=== PATIENT | male | born 1955 | race Hispanic/Latino ===

== ENCOUNTER 2021-05-10 10:36 | Emergency (ER) | payer OTHER ==
[2021-05-10 11:14] LABS: Urine Blood Negative (Negative); Urine Glucose 3+ (Negative); Urine Protein Negative (Negative); Urine pH 6.5 (5.0-7.0)
[2021-05-10] MEDS ORDERED: NA CHLORIDE 0.9% 1,000 ML ONE (11:21)
[2021-05-10] MEDS ORDERED: INSULIN -REGULAR HUMAN 50 UNIT/0.5 ML ML ONE (11:21)
[2021-05-10 11:32] LABS: Absolute Lymphocytes (CBC) 0.5 K/uL (0.7-4.9); Hematocrit 41.8 % (39.6-49.0); Lymphocytes % 6.1 % (15.3-44.8); MPV 7.2 fL (7.6-11.3); RBC Red Blood Cell Count 4.66 M/uL (4.33-5.43)
[2021-05-10 11:43] LABS: ALT/SGPT 56 U/L (12-78); AST/SGOT 19 U/L (15-37); Albumin 2.8 g/dL (3.4-5.0); Alkaline Phosphatase 130 U/L (45-117); BUN Blood Urea Nitrogen 24 mg/dL (7-18); Bicarbonate 25 mmol/L (21-32); Bilirubin Direct < 0.1 mg/dL (0-0.2); Bilirubin Total 0.3 mg/dL (0.2-1.0); Lipase 269 U/L (73-393); Potassium 4.7 mmol/L (3.5-5.1); Protein, Total 6.1 g/dL (6.4-8.2); Sodium Level 133 mmol/L (136-145)
[2021-05-10 11:44] LABS: Glucose Level 459 mg/dL (74-106)
--- NOTE | 2021-05-10 14:29 | EDPHYS ---
Physician Documentation [facility] Name: Kai Khalil Age: 66 yrs Sex: Male : 1955 Arrival Date: 05/10/2021 Time: 10:43 Bed 15 Private MD: ED Physician Mj Devlin HPI: 05/10 11:01 This 66 yrs old Male presents to ER via Ambulatory with complaints of High jmm Blood Sugar. 11:01 Onset: The symptoms/episode began/occurred today. Associated signs and symptoms: jmm Pertinent negatives: None. Current symptoms: In the emergency department the patient's symptoms are unchanged from the initial presentation. The patient has not experienced similar symptoms in the past. Patient states he takes metformin daily as directed by his PCP. - Immunization history:: Adult Immunizations unknown. - Social history:: Smoking status: Patient denies any tobacco usage or history of. ROS: 11:01 Constitutional: Negative for fever, chills, and weight loss, Cardiovascular: Negative jmm for chest pain, palpitations, and edema, Respiratory: Negative for shortness of breath, cough, wheezing, and pleuritic chest pain, Abdomen/GI: Negative for abdominal pain, nausea, vomiting, diarrhea, and constipation, Skin: Negative for injury, rash, and discoloration, Neuro: Negative for headache, weakness, numbness, tingling, and seizure. 11:01 All other systems are negative. Exam: 11:01 Constitutional: This is a well developed, well nourished patient who is awake, alert, jmm and in no acute distress. Head/Face: atraumatic. Eyes: EOMI, no conjunctival erythema appreciated ENT: Moist Mucus Membranes Neck: Trachea midline, Supple Chest/axilla: Normal chest wall appearance and motion. Cardiovascular: Regular rate and rhythm. No edema appreciated Respiratory: Normal respirations, no respiratory distress appreciated Abdomen/GI: Non distended, soft Back: Normal ROM Skin: General appearance color normal MS/ Extremity: Moves all extremities, no obvious deformities appreciated, no edema noted to the lower extremities Neuro: Awake and alert, normal gait Psych: Behavior is normal, Mood is normal, Patient is cooperative and pleasant Vital Signs: 10:49 BP 151 / 89; Pulse 88; Resp 18; Temp 98.1(O); Pulse Ox 100% on R/A; Weight 93.44 kg; juarez Height 5 ft. 0 in. (152.40 cm); 10:58 BP 173 / 90; Pulse 89; Resp 16; Temp 98.6; Pulse Ox 99% ; Pain 0/10; cb5 13:15 BP 139 / 88; Pulse 77; Resp 16; Pulse Ox 98% ; Pain 0/10; cb5 14:40 BP 138 / 78; Pulse 76; Resp 16; Temp 98.6; Pulse Ox 99% ; Pain 0/10; cb5 10:49 Body Mass Index 40.23 (93.44 kg, 152.40 cm) juarez MDM: 11:02 [facility] medically screened. [facility] 14:28 Data reviewed: vital signs, nurses notes. Counseling: I had a detailed discussion with jazz the patient and/or guardian regarding: the historical points, exam findings, and any diagnostic results supporting the discharge/admit diagnosis, lab results, the need for outpatient follow up, to return to the emergency department if symptoms worsen or persist or if there are any questions or concerns that arise at home. 05/10 11:01 Order name: Glucose, Ancillary Testing [facility] 05/10 11:02 Order name: Basic Metabolic Panel; Complete Time: 12:29 [facility] 05/10 11:02 Order name: CBC with Diff; Complete Time: 12:29 [facility] 05/10 11:02 Order name: Hepatic Function; Complete Time: 12:29 [facility] 05/10 11:02 Order name: Lipase; Complete Time: 12:29 [facility] 05/10 11:14 Order name: Urine Dipstick-Ancillary; Complete Time: 11:25 [facility] 05/10 11:02 Order name: IV Saline Lock; Complete Time: 11:17 [facility] 05/10 11:02 Order name: Labs collected and sent; Complete Time: 11:17 [facility] 05/10 11:29 Order name: Glucose, Ancillary Testing [facility] 05/10 12:45 Order name: Glucose, Ancillary Testing; Complete Time: 12:53 [facility] 05/10 14:45 Order name: Glucose, Ancillary Testing; Complete Time: 14:47 [facility] Administered Medications: 11:21 Drug: NS 0.9% 1000 ml Route: IV; Rate: 1 bolus; Site: left antecubital; cb5 11:21 Drug: Insulin Regular Human 10 units {Co-Signature: ab2 (Osvaldo Zaidi).} Route: cb5 IVP; Site: left antecubital; 13:01 Drug: NS 0.9% 1000 ml Route: IV; Rate: 1 bolus; Site: left antecubital; cb5 Disposition: 18:03 Co-signature as Attending Physician, Mj Devlin MD. rn Disposition Summary: 05/10/21 14:28 Discharge [facility]dered [facility] Condition: Stable jm Diagnosis - Hyperglycemia, unspecified jm [facility]up[facility] - With: Private Physician - When: 2 - 3 days - Reason: Recheck today's complaints, Continuance of care, Re-evaluation by your physician Discharge Instructions: - Discharge Summary Sheet [facility] - Hyperglycemia [facility] Forms: - Medication Reconciliation Form [facility] - Thank You Letter [facility] - Antibiotic Education [facility] - Prescription Opioid Use [facility] Signatures: Dispatcher [employer] EDRavinder Urbina PA PA jmm Nieto, Roman, MD MD rn Pili Romano RN Yolie Frederick RN RN cb5 Osvaldo Zaidi ab2
--- NOTE | 2021-05-10 14:29 | ER ---
Nurse's Notes [facility] Name: Kai Khalil Age: 66 yrs Sex: Male : 1955 Arrival Date: 05/10/2021 Time: 10:43 Bed 15 Private MD: Diagnosis: Hyperglycemia, unspecified Presentation: 05/10 10:49 Chief complaint: Patient states: pt presented to ed with high blood sugar. B/S in juarez triage 476. Coronavirus screen: Vaccine status: Patient reports being unvaccinated. Ebola Screen: Patient denies travel to an Ebola-affected area in the 21 days before illness onset. Initial Sepsis Screen: Does the patient meet any 2 criteria? No. Patient's initial sepsis screen is negative. Does the patient have a suspected source of infection? No. Patient's initial sepsis screen is negative. Risk Assessment: Do you want to hurt yourself or someone else? Patient reports no desire to harm self or others. Onset of symptoms was 2021. 10:49 Method Of Arrival: Ambulatory juarez 10:49 Acuity: XIN 3 juarez Triage Assessment: 10:56 General: Appears in no apparent distress. comfortable, Behavior is calm, cooperative, cb5 appropriate for age. 10:56 Pain: Denies pain. cb5 - Immunization history:: Adult Immunizations unknown. - Social history:: Smoking status: Patient denies any tobacco usage or history of. Screenin:57 Abuse screen: Denies threats or abuse. Denies injuries from another. Nutritional cb5 screening: No deficits noted. Tuberculosis screening: No symptoms or risk factors identified. Assessment: 10:56 General: Appears in no apparent distress. comfortable, well developed, well nourished, cb5 Behavior is calm, cooperative, appropriate for age. Pain: Denies pain. Neuro: No deficits noted. Level of Consciousness is awake, alert, obeys commands, Oriented to person, place, time. Cardiovascular: No deficits noted. Respiratory: No deficits noted. GI: Patient currently denies. : Denies. EENT: No deficits noted. Derm: No deficits noted. Musculoskeletal: No deficits noted. 13:16 Reassessment: Patient and/or family updated on plan of care and expected duration. Pain cb5 level reassessed. 14:45 Reassessment: Reported to P.A. glucose reading. cb5 Vital Signs: 10:49 BP 151 / 89; Pulse 88; Resp 18; Temp 98.1(O); Pulse Ox 100% on R/A; Weight 93.44 kg; juarez Height 5 ft. 0 in. (152.40 cm); 10:58 BP 173 / 90; Pulse 89; Resp 16; Temp 98.6; Pulse Ox 99% ; Pain 0/10; cb5 13:15 BP 139 / 88; Pulse 77; Resp 16; Pulse Ox 98% ; Pain 0/10; cb5 14:40 BP 138 / 78; Pulse 76; Resp 16; Temp 98.6; Pulse Ox 99% ; Pain 0/10; cb5 10:49 Body Mass Index 40.23 (93.44 kg, 152.40 cm) ED Course: 10:43 Patient arrived in ED. am2 10:51 Triage completed. 10:54 Ravinder Mackenzie PA is PHCP. [facility] 10:54 Mj Devlin MD is Attending Physician. [facility] 10:55 Yolie Melo, AUGUSTO is Primary Nurse. cb5 10:56 Arm band placed on right wrist. cb5 10:57 Patient has correct armband on for positive identification. Bed in low position. Call cb5 light in reach. Side rails up X2. 10:57 No provider procedures requiring assistance completed. cb5 11:10 Urine collected: clean catch specimen, cloudy. mb4 11:17 Basic Metabolic Panel Sent. cb5 11:17 CBC with Diff Sent. cb5 11:17 Hepatic Function Sent. cb5 11:17 Glucose, Ancillary Testing Sent. cb5 11:19 Notified Nurse Practitioner and/or Physician Field Operations Supervisor of a critical lab result(s), BGL mb4 of 427mg/dL via finger stick. 11:57 Glucose, Ancillary Testing Sent. cb5 Administered Medications: 11:21 Drug: NS 0.9% 1000 ml Route: IV; Rate: 1 bolus; Site: left antecubital; cb5 11:21 Drug: Insulin Regular Human 10 units {Co-Signature: ab2 (Osvaldo Zaidi).} Route: cb5 IVP; Site: left antecubital; 13:01 Drug: NS 0.9% 1000 ml Route: IV; Rate: 1 bolus; Site: left antecubital; cb5 Outcome: 14:28 Discharge ordered by MD. schulz 14:53 Discharged to home ambulatory. cb5 14:53 Condition: stable 14:53 Discharge instructions given to 14:54 Patient left the ED. cb5 Signatures: Ravinder Mackenzie PA PA jmm Moreno, Amanda am2 Julieth Dhaliwal mb4 Pili Romano RN RN Yolie Schafer RN RN cb5 Osvaldo Zaidi ab2
[2021-05-10 18:21] VITALS: TEMP 98.6
[2021-05-10 18:24] VITALS: BP 138/78; O2SAT 99
== END 2021-05-10 14:54 | disposition home or self-care (01) ==
LOC: ER 10:36
DX: R73.9 Hyperglycemia, unspecified (principal)
CPT/HCPCS: 85025; 80048; 36415; 82947 ×4; 80076; 81003; 83690; J7030; 96374; 99283

== ENCOUNTER 2023-02-21 14:49 | Emergency (ER) | payer OTHER ==
[2023-02-21 16:10] LABS: Absolute Lymphocytes (CBC) 1.3 K/uL (0.7-4.9); Hematocrit 19.4 % (39.6-49.0); Lymphocytes % 22.8 % (15.3-44.8); MCV 70.1 fL (80-100); MPV 6.7 fL (7.6-11.3); Platelets 438 thou/uL (152-406); RBC Red Blood Cell Count 2.77 M/uL (4.33-5.43)
[2023-02-21 16:11] LABS: Protime INR 1.19
[2023-02-21 16:21] LABS: Albumin 3.7 g/dL (3.4-5.0); Bilirubin Total 0.3 mg/dL (0.2-1.0); Potassium 3.8 mEq/L (3.5-5.1); Protein, Total 7.1 g/dL (6.4-8.2)
[2023-02-21 16:53] LABS: Ferritin 6.7 ng/mL (26-388); Transferrin 372 mg/dL (200-360)
[2023-02-21 18:42] LABS: Specific Gravity 1.026 (1.005-1.030); Urine Bilirubin NEGATIVE (Negative); Urine Blood Negative (Negative); Urine Clarity Clear (Clear); Urine Color Light-Yellow (Yellow); Urine Glucose 4+ (Over) (Negative); Urine Protein NEGATIVE (Negative); Urine Urobilinogen Normal (Normal)
[2023-02-21 18:44] LABS: Urine Bacteria <20 /HPF (<20); Urine RBC None Seen /HPF (None Seen)
--- NOTE | 2023-02-21 21:56 | ER ---
Nurse's Notes [facility] Name: Kai Khalil Age: 67 yrs Sex: Male : 1955 Arrival Date: 02/21/2023 Time: 14:49 Bed 19 Private MD: Diagnosis: Anemia, unspecified Presentation: 02/21 14:56 Chief complaint: Patient states: had labs drawn on Tuesday and his PCP told him he iw might need blood , Hbg was 5.2, denies blood in stool , he has been feeling weak for a year , getting worse now , no hx of anemia. 14:59 Coronavirus screen: At this time, the client does not indicate any symptoms associated iw with coronavirus-19. Risk Assessment: Do you want to hurt yourself or someone else? Patient reports no desire to harm self or others. Onset of symptoms was February 21, 2023. 14:59 Method Of Arrival: Ambulatory iw 14:59 Acuity: XIN 3 iw 15:00 Ebola Screen: Patient negative for fever greater than or equal to 101.5 degrees iw Fahrenheit, and additional compatible Ebola Virus Disease symptoms Patient denies exposure to infectious person. Patient denies travel to an Ebola-affected area in the 21 days before illness onset. No symptoms or risks identified at this time. Initial Sepsis Screen: Does the patient meet any 2 criteria? No. Patient's initial sepsis screen is negative. Does the patient have a suspected source of infection? No. Patient's initial sepsis screen is negative. Historical: - Allergies: 14:59 No Known Allergies; iw - PMHx: 14:59 Hypertensive disorder; Diabetes mellitus; iw - Immunization history:: Adult Immunizations unknown. - Social history:: Smoking status: Patient denies any tobacco usage or history of. Screenin:07 [facility] ED Fall Risk Assessment (Adult) History of falling in the last 3 months, rs5 including since admission No falls in past 3 months (0 pts) Confusion or Disorientation No (0 pts) Intoxicated or Sedated No (0 pts) Impaired Gait No (0 pts) Mobility Assist Device Used No (0 pt) Altered Elimination No (0 pt) Score/Fall Risk Level 0 - 2 = Low Risk Oriented to surroundings, Maintained a safe environment. Abuse screen: Denies threats or abuse. Nutritional screening: No deficits noted. Tuberculosis screening: No symptoms or risk factors identified. Assessment: 15:06 General: Appears in no apparent distress. comfortable, Behavior is calm, cooperative. rs5 Pain: Denies pain. Neuro: Level of Consciousness is awake, alert, obeys commands, Oriented to person, place, time, situation. Cardiovascular: Heart tones S1 S2 present Rhythm is regular. Respiratory: Airway is patent Respiratory effort is even, unlabored, Respiratory pattern is regular, symmetrical, Breath sounds are clear bilaterally. GI: Abdomen is round non-distended, Bowel sounds present X 4 quads. Abd is soft and non tender X 4 quads. : No signs and/or symptoms were reported regarding the genitourinary system. EENT: No signs and/or symptoms were reported regarding the EENT system. Derm: Skin is intact, Skin is pink, warm \T\ dry. Musculoskeletal: Range of motion: intact in all extremities. 15:54 Reassessment: Patient and/or family updated on plan of care and expected duration. Pain rs5 level reassessed. Patient is alert, oriented x 3, equal unlabored respirations, skin warm/dry/pink. 17:02 Reassessment: Patient denies pain at this time. Cardiovascular: Rhythm is regular. rs5 Respiratory: Airway is patent Respiratory effort is even, unlabored, Respiratory pattern is regular, symmetrical. 18:20 Reassessment: Patient and/or family updated on plan of care and expected duration. Pain rs5 level reassessed. Patient is alert, oriented x 3, equal unlabored respirations, skin warm/dry/pink. 18:30 Reassessment: To bedside for blood transfusion. rs5 18:30 Cardiovascular: Denies chest pain, Heart tones S1 S2 present Rhythm is regular. rs5 Respiratory: Respiratory effort is even, unlabored, Respiratory pattern is regular, symmetrical, Breath sounds are clear bilaterally. 18:50 Reassessment: Blood transfusion rate started at 50 ml/hr for first 15 min. No signs of rs5 transfusion reaction. Blood transfusion rate increased to 250 ml/hr after first fifteen minutes. See blood transfusion record for more information. 18:50 Cardiovascular: Denies chest pain, Rhythm is regular. Cardiovascular: Heart tones S1 S2 rs5 present. Respiratory: Airway is patent Respiratory effort is even, unlabored, Respiratory pattern is regular, symmetrical, Breath sounds are clear bilaterally. 19:00 Reassessment: Patient and/or family updated on plan of care and expected duration. Pain vc1 level reassessed. Patient is alert, oriented x 3, equal unlabored respirations, skin warm/dry/pink. Reviewed blood with off going nurse. No complaints at this time. 20:00 Reassessment: No changes from previously documented assessment. Patient and/or family vc1 updated on plan of care and expected duration. Pain level reassessed. Patient is alert, oriented x 3, equal unlabored respirations, skin warm/dry/pink. Patient denies pain at this time. Vital Signs: 14:59 BP 148 / 83; Pulse 99; Resp 16; Temp 98.2; Pulse Ox 98% on R/A; iw 15:15 BP 146 / 91; Pulse 97; Resp 17; Pulse Ox 99% on R/A; rs5 18:30 BP 147 / 83; Pulse 94; Resp 17; Temp 97.8(TE); Pulse Ox 99% ; rs5 18:35 BP 146 / 79; Pulse 90; Resp 16; Temp 97.7(TE); Pulse Ox 99% on R/A; rs5 18:40 BP 148 / 77; Pulse 92; Resp 17; Temp 97.8(TE); Pulse Ox 100% on R/A; rs5 18:45 BP 150 / 74; Pulse 88; Resp 16; Temp 97.5(TE); Pulse Ox 99% on R/A; rs5 19:00 BP 145 / 76; Pulse 88; Resp 18; Pulse Ox 98% ; vc1 20:13 BP 158 / 80; Pulse 86; Resp 20; Pulse Ox 98% ; vc1 20:30 BP 146 / 83; Pulse 85; Resp 18; Temp 98.2; Pulse Ox 97% ; vc1 21:30 BP 144 / 88; Pulse 82; Resp 22; Pulse Ox 99% ; vc1 22:00 BP 140 / 92; Pulse 86; Resp 24; Pulse Ox 99% ; vc1 ED Course: 14:52 Patient arrived in ED. im 14:53 [facility]ari Banda FNP [facility]. jh7 14:53 Mj Devlin MD is Attending Physician. 7 14:59 Triage completed. iw 15:01 Arm band placed on. iw 15:07 Patient has correct armband on for positive identification. Placed in gown. Bed in low rs5 position. Side rails up X2. 15:15 Inserted saline lock: 20 gauge in right antecubital area, using aseptic technique. rs5 Blood collected. 15:18 Angel Mcfarlane, RN is Primary Nurse. rs5 16:20 Notified Nurse Practitioner and/or Physician Temperature Control Inspector of a critical lab result(s), HGB ll1 5.8. 19:00 Report received from AUGUSTO Ortiz. vc1 19:00 Provided Education on: Blood Transfusion. vc1 22:18 No provider procedures requiring assistance completed. IV discontinued, intact, vc1 bleeding controlled, No redness/swelling at site. Pressure dressing applied. Administered Medications: No medications were administered Medication: 22:18 VIS not applicable for this client. vc1 Outcome: 21:55 Discharge ordered by . kb 22:30 Discharged to home ambulatory, vc1 22:30 Condition: good 22:30 Discharge instructions given to patient, Instructed on discharge instructions, follow up and referral plans. Demonstrated understanding of instructions, follow-up care, 22:30 Patient left the ED. vc1 Signatures: Daphne Espinal, OFFICE SERVICES CLERK-C OFFICE SERVICES CLERK-CkMarcela Hightower RN RN iw Rhea Harding RN RN ll1 Kalyn Hampton RN RN vc1 Cari Banda FNP [facility]7 Angel Mcfarlane, AUGUSTO RN rs5 Christie Ramos Corrections: (The following items were deleted from the chart) 15:01 14:56 Chief complaint: Patient states: had labs drawn on Tuesday and his PCP told him iw he might need blood iw 15: 14:56 Chief complaint: Patient states: had labs drawn on Tuesday and his PCP told him iw he might need blood , Hbg was 5.2, denies blood in stool , he has been feeling weak for a year , getting worse now iw 19:11 18:30 Reassessment: To bedside for blood transfusion. rs5 rs5 19:11 18:50 Reassessment: Blood transfusion rate started at 50ml/hr for first 15 min. No rs5 signs of transfusion reaction. Blood transfusion rate increased to 250 ml/hr after first fifteen minutes. rs5
--- NOTE | 2023-02-21 21:56 | EDPHYS ---
Physician Documentation [facility] Name: Kai Khalil Age: 67 yrs Sex: Male : 1955 Arrival Date: 02/21/2023 Time: 14:49 Bed 19 Private MD: ED Physician Mj Devlin HPI: 02/21 14:56 This 67 yrs old Male presents to ER via Ambulatory with complaints of Abnormal jh7 Lab Results. 14:56 Onset: The symptoms/episode began/occurred 1 year(s) ago. Associated signs and jh7 symptoms: Pertinent positives: weakness, Pertinent negatives: abdominal pain, chest pain, fever, shortness of breath, Black stools, vomiting, hematemesis. 67-year-old male sent from Dr. Daugherty's office for low hemoglobin of 5.7. The patient reports weakness progressing over the past year and has a history of hypertension, diabetes, and GERD. He denies any black stool or nausea vomiting.. Historical: - Allergies: 14:59 No Known Allergies; iw - PMHx: 14:59 Hypertensive disorder; Diabetes mellitus; iw - Immunization history:: Adult Immunizations unknown. - Social history:: Smoking status: Patient denies any tobacco usage or history of. ROS: 14:56 Constitutional: Negative for fever, chills, and weight loss, Eyes: Negative for injury, jh7 pain, redness, and discharge, Neck: Negative for injury, pain, and swelling, Cardiovascular: Negative for chest pain, palpitations, and edema, Respiratory: Negative for shortness of breath, cough, wheezing, and pleuritic chest pain, Abdomen/GI: Negative for abdominal pain, nausea, vomiting, diarrhea, and constipation, Back: Negative for injury and pain, MS/Extremity: Negative for injury and deformity, Skin: Negative for injury, rash, and discoloration, Neuro: Negative for headache, weakness, numbness, tingling, and seizure, 14:56 Neuro: Positive for weakness, Negative for altered mental status, gait disturbance, headache, syncope, 14:56 All other systems are negative, Exam: 14:56 Constitutional: This is a well developed, well nourished patient who is awake, alert, jh7 and in no acute distress. Head/Face: Normocephalic, atraumatic. Neck: Trachea midline, no thyromegaly or masses palpated, and no cervical lymphadenopathy. Supple, full range of motion without nuchal rigidity, or vertebral point tenderness. No Meningismus. Cardiovascular: Regular rate and rhythm with a normal S1 and S2. No gallops, murmurs, or rubs. Normal PMI, no JVD. No pulse deficits. Respiratory: Lungs have equal breath sounds bilaterally, clear to auscultation and percussion. No rales, rhonchi or wheezes noted. No increased work of breathing, no retractions or nasal flaring. Abdomen/GI: Soft, non-tender, with normal bowel sounds. No distension or tympany. No guarding or rebound. No evidence of tenderness throughout. Back: No spinal tenderness. No costovertebral tenderness. Full range of motion. MS/ Extremity: Pulses equal, no cyanosis. Neurovascular intact. Full, normal range of motion. Neuro: Awake and alert, GCS 15, oriented to person, place, time, and situation. Motor strength 5/5 in all extremities. Sensory grossly intact. Normal gait. 14:56 Skin: Appearance: Color: pale, 16:38 : Rectal exam: is normal, Guaiac testing: results were negative for occult blood, jh7 Stool is brown with no signs of melena, Vital Signs: 14:59 BP 148 / 83; Pulse 99; Resp 16; Temp 98.2; Pulse Ox 98% on R/A; iw 15:15 BP 146 / 91; Pulse 97; Resp 17; Pulse Ox 99% on R/A; rs5 18:30 BP 147 / 83; Pulse 94; Resp 17; Temp 97.8(TE); Pulse Ox 99% ; rs5 18:35 BP 146 / 79; Pulse 90; Resp 16; Temp 97.7(TE); Pulse Ox 99% on R/A; rs5 18:40 BP 148 / 77; Pulse 92; Resp 17; Temp 97.8(TE); Pulse Ox 100% on R/A; rs5 18:45 BP 150 / 74; Pulse 88; Resp 16; Temp 97.5(TE); Pulse Ox 99% on R/A; rs5 19:00 BP 145 / 76; Pulse 88; Resp 18; Pulse Ox 98% ; vc1 20:13 BP 158 / 80; Pulse 86; Resp 20; Pulse Ox 98% ; vc1 20:30 BP 146 / 83; Pulse 85; Resp 18; Temp 98.2; Pulse Ox 97% ; vc1 21:30 BP 144 / 88; Pulse 82; Resp 22; Pulse Ox 99% ; vc1 22:00 BP 140 / 92; Pulse 86; Resp 24; Pulse Ox 99% ; vc1 MDM: 14:53 Patient medically screened. [facility] 16:30 ED course: Unremarkable exam. We will give the patient 2 units PRBC and have him [facility] follow-up with Dr. Daugherty. There are no signs of any GI bleeding and based on lab work and clinical presentation, the patient has iron deficiency anemia.. 02/21 15:00 Order name: CBC with Diff; Complete Time: 16:28 [facility] 02/21 15:00 Order name: CMP; Complete Time: 16:28 [facility] 02/21 15:00 Order name: Lipase; Complete Time: 16:28 [facility] 02/21 15:00 Order name: Urinalysis w/ reflexes [facility] 02/21 15:00 Order name: Type And Screen [facility] 02/21 15:00 Order name: PT-INR; Complete Time: 16:13 [facility] 02/21 15:13 Order name: Ferritin; Complete Time: 17:04 [facility] 02/21 15:13 Order name: TIBC; Complete Time: 17:04 [facility] 02/21 15:13 Order name: B12; Complete Time: 17:04 [facility] 02/21 16:44 Order name: Bb Add On bd 02/21 16:58 Order name: Packed RBCs (Additional Unit) [facility] 02/21 18:08 Order name: ABO/RH no charge [facility] 02/21 15:00 Order name: IV Saline Lock; Complete Time: 15:50 [facility] 02/21 15:00 Order name: Labs collected and sent; Complete Time: 15:50 [facility] 02/21 15:14 Order name: EKG - Nurse/Tech; Complete Time: 15:27 [facility] EC:56 Rate is 97 beats/min. Rhythm is regular. QRS Pinch is Normal. [place] interval is normal at [facility] 160 msec. QRS interval is normal at 78 msec. QT interval is normal at 338 msec. No Q waves. T waves are Normal. No ST changes noted. Clinical impression: Normal ECG. Administered Medications: No medications were administered Disposition Summary: 02/21/23 21:55 Discharge Ordered Notes: Location: Home kb Condition: Stable kb Diagnosis - Anemia, unspecified kb Followup: kb - With: Emergency Department - When: As needed - Reason: Worsening of condition Followup: kb - With: Private Physician - When: 2 - 3 days - Reason: Recheck today's complaints, Continuance of care, Re-evaluation by your physician Discharge Instructions: - Discharge Summary Sheet kb - Anemia kb - Blood Transfusion, Adult, Guni-hg-Epux kb - Blood Transfusion, Adult, Care After, Yxbm-yk-Gkux kb Forms: - Medication Reconciliation Form kb - Thank You Letter kb - Antibiotic Education kb - Prescription Opioid Use kb - Patient Portal Instructions kb - Leadership Thank You Letter kb Addendum: 02/25/2023 07:37 Co-signature as Attending Physician, Mj Devlin MD I reviewed the patient's care r n provided by the Advanced Practice Provider and agree with the diagnosis and treatment plan. Signatures: Dispatcher [employer] Daphne Michael, QA AUTOMATION DEVELOPER-C QA AUTOMATION DEVELOPER-Jeraldb Marcela Eden, RN Mj Mast MD MD rn Hadash, Jennifer, QA AUTOMATION DEVELOPER QA AUTOMATION DEVELOPER jh7 Angel Mcfarlane, RN RN rs5
[2023-02-21 22:48] VITALS: TEMP 98.2
[2023-02-21 22:50] VITALS: O2SAT 99
[2023-02-21 22:52] VITALS: BP 140/92
--- NOTE | 2023-02-26 14:30 | EKG ---
Test Date: 2023-02-21 Test Time: 15:23:26 Informatics Consultant: EKATERINA MEASUREMENT RESULTS: Intervals: Rate: 97 IL: 160 QRSD: 78 QT: 338 QTc: 429 [place]: P: 48 IL: 160 QRS: 0 T: 53 INTERPRETIVE STATEMENTS: Normal sinus rhythm Normal ECG No previous ECG available for comparison Electronically Signed On 02-26-23 14:16:54 OIL TANKER CAPTAIN by Jas Loera
== END 2023-02-21 22:30 | disposition home or self-care (01) ==
LOC: ER 14:49
PROC: 30233N1 Transfusion of Nonautologous Red Blood Cells into Peripheral Vein, Percutaneous Approach (ICD-10-PCS; principal; 2023-02-21)
DX: D64.9 Anemia, unspecified (principal); E11.9 Type 2 diabetes mellitus without complications; I10 Essential (primary) hypertension
CPT/HCPCS: 93005; 85025; 81001; 36415; 86900; 86850; 85610; 86901; 86920 ×2; 81003; 82728; 82607; 83690; 83540; 80053; 84466; 99284; 36430; P9016 ×2

== ENCOUNTER 2023-09-21 05:54 | Observation (INO) | payer OTHER ==
[2023-09-16 12:36] LABS: Absolute Eosinophils 0.3 K/uL (0-0.5); Absolute Lymphocytes (CBC) 1.7 K/uL (0.7-4.9); Absolute Monocytes 0.6 K/uL (0.1-1.3); Absolute Neutrophil 3.2 K/uL (1.8-8.0); Basophils % 0.8 % (0-1.3); Eosinophils % 4.9 % (0-4.4); Hematocrit 44.7 % (39.6-49.0); Hemoglobin 15.1 g/dL (13.6-17.9); Lymphocytes % 29.3 % (15.3-44.8); MCH 31.2 pg (27.0-35.0); MCHC 33.7 g/dL (32.0-36.0); MCV 92.6 fL (80-100); MPV 7.4 fL (7.6-11.3); Monocytes % 10.2 % (3.3-12.3); Neutrophils % 54.8 % (41.7-73.7); Platelets 282 thou/uL (152-406); RBC Red Blood Cell Count 4.83 M/uL (4.33-5.43); Red Cell Distribution Width 14.7 % (12.1-15.2)
[2023-09-16 12:41] LABS: PT Prothrombin Time 10.9 SECONDS (9.5-12.5); PTT, Activated Partial Thromb 33.3 SECONDS (24.3-36.9); Protime INR 0.99
[2023-09-16 12:46] LABS: Anion Gap 3.9 mEq/L (5.0-15.0); Potassium 3.9 mEq/L (3.5-5.1)
--- NOTE | 2023-09-16 14:07 | RAD REPORT ---
EXAM DESCRIPTION: RAD - Chest Pa And Lat (2 Views) - 09/16/2023 12:45 pm CLINICAL HISTORY: pre op right total knee. Hypertension COMPARISON: No comparisons TECHNIQUE: PA and lateral views of the chest were obtained. FINDINGS: The lungs are clear. Elevation of the diaphragm. Heart size is normal and central vasculat ure is within normal limits. No pleural effusion or pneumothorax seen. No acute bony finding noted. IMPRESSION: No acute cardiopulmonary process.
--- NOTE | 2023-09-19 14:13 | EKG ---
Test Date: 2023-09-16 Test Time: 12:17:06 Precision Honing Machine Operator: DAVID MEASUREMENT RESULTS: Intervals: Rate: 90 IL: 150 QRSD: 90 QT: 354 QTc: 433 [place]: P: 60 IL: 150 QRS: 100 T: -36 INTERPRETIVE STATEMENTS: Normal sinus rhythm Rightward axis Inferior infarct, age undetermined T wave abnormality, consider lateral ischemia Abnormal ECG Compared to ECG 02/21/2023 15:23:26 Right-axis deviation now present Myocardial infarct finding now present T-wave abnormality now present Possible ischemia now present Electronically Signed On 09-19-23 14:07:03 CDT by Jas Loera
[2023-09-21] MEDS: NA CHLORIDE 0.9% 1,000 ML ONE ×2 (06:20→09:30)
[2023-09-21] MEDS: ACETAMINOPHEN 500 MG TAB ONE (06:35)
[2023-09-21] MEDS: Oxycodone HCl/Acetaminophen 5/325 MG TAB ONE (06:35)
[2023-09-21] MEDS: GABAPENTIN 100 MG CAP ONE (06:35)
[2023-09-21] MEDS: EPINEPHRINE 1 MG/ML VIAL ONE (06:49)
[2023-09-21] MEDS: dexAMETHasone 10 MG/ML VIAL ONE (06:49)
[2023-09-21] MEDS: FENTANYL CITR 100 MCG/2 ML ONE (06:49)
[2023-09-21] MEDS: LIDOCAINE 1% MPF 5 ML VIAL ONE (06:49)
[2023-09-21] MEDS: BUPIVACAINE 0.25% PF 30 ML VIAL ONE (06:50)
[2023-09-21] MEDS: DEXMEDETOMIDINE HCL 200 MCG/2 ML VIAL ONE (06:50)
[2023-09-21] MEDS: MIDAZOLAM HCL 2 MG/2 ML INJ ONE (06:50)
[2023-09-21] MEDS: MAGNESIUM SULFATE 1 gm IVPB 1 GM/100 ML BAG IV ONE (06:51)
[2023-09-21] MEDS: SODIUM BICARB 50 MEQ/50ML VIAL ONE (06:51)
[2023-09-21] MEDS: TRANEXAMIC ACID 1,000 MG/10 ML VIAL IV ONE (07:22)
[2023-09-21] MEDS ORDERED: LIDOCAINE 2% MPF 5 ML VIAL ONE ×2 (07:53→08:41)
[2023-09-21] MEDS ORDERED: KETOROLAC 30 MG/ML INJ ONE (07:53)
[2023-09-21] MEDS ORDERED: ONDANSETRON 4 MG/2 ML VIAL ONE (07:53)
[2023-09-21] MEDS ORDERED: dexAMETHasone 10 MG/ML VIAL ONE (07:53)
[2023-09-21] MEDS ORDERED: propofoL 200 MG/20 ML VIAL IV ONE (07:53)
[2023-09-21] MEDS: CEFAZOLIN SODIUM 1 GM/VIAL ONE (08:31)
[2023-09-21] MEDS ORDERED: KETAMINE HCL IN 0.9 % NACL 50 MG/5 ML SYRINGE IV ONE (08:41)
--- NOTE | 2023-09-21 10:44 | P.BOP ---
Preoperative diagnosis: right knee osteoarthritis Postoperative diagnosis: same Primary procedure: right total knee arthroplasty Railcar Switchman: NONE,NONE Estimated blood loss: 40 cc Specimen: right knee bone remnants Findings: see dictation Anesthesia: General Complications: None Implants: Biomet Casandra Persona 8 CR femur, F tibia, 12 CR poly, 32 patella Fluids & blood products: per anesthesia record; TT: 86 mins @ 300 mmHg Transferred to: Recovery Room Condition: Good
[2023-09-21] MEDS ORDERED: DOCUSATE NA 100 MG CAP PO PRN (10:45)
[2023-09-21] MEDS ORDERED: ACETAMINOPHEN 325 MG TABLET PO PRN (10:45)
[2023-09-21] MEDS ORDERED: TRAMADOL HCL 50 MG TAB PO PRN (10:47)
[2023-09-21 11:20] LABS: Hematocrit 38.6 % (39.6-49.0); Hemoglobin 12.3 g/dL (13.6-17.9)
[2023-09-21] MEDS ORDERED: ROCURONIUM 50 MG/5 ML VIAL IV ONE (13:07)
--- OUTSIDE RECORDS SUMMARY | 2023-09-21 13:13 | XMS REPORT | Continuity of Care Document ---
Author Name Unknown Address [address] [facility] [address] [facility] [address] [place] [address] [facility] thconnect Address [address] [facility] [address] [place] [address] Care Team Providers Care Supervisor Detasseling Crew Name Role Phone Clark Meka A Primary Care Physician + [phone] Latoya Partida MD Attending Clinician [phone] LATOYA PARTIDA Attending Clinician Unavailable LATOYA PARTIDA Admitting Clinician Unavailable Payers Payer Name Policy Type Policy Number Effective Date Expirati on Date Source Problems Condition Name Condition Details Condition Category Status Onset Date Resolution Date Last Treatment Date Treating Clinician Comments Source Preop cardiovasc ular exam Preop cardiovasc ular exam Disease Active 2022-04 00:00: 00 [facility] Primary hypertensi on Primary hypertensi on Disease Active 2022-04 00:00: 00 [facility] Type 2 diabetes mellitus without complicati on, without long-term current use of insulin Type 2 diabetes mellitus without complicati on, without long-term current use of insulin Disease Active 2022-04 00:00: 00 [facility] acute hospital Hyperlipid emia, unspecifie d hyperlipid emia type Hyperlipid emia, unspecifie d hyperlipid emia type Disease Active 2022-04 00:00: 00 [facility] acute hospital Abnormal EKG Abnormal EKG Disease Active 2022-04 00:00: 00 [facility] acute hospital Allergies, Adverse Reactions, Alerts Allergy Name Allergy Type Status Severity Reaction(s) Onset Date Inactive Date Treating Clinician Comments Source NO KNOWN ALLERGIE S Drug Class Active [facility] acute hospital Social History Social Habit Start Date Stop Date Quantity Comments Source [facility] Tobacco use and exposure 2023-04-13 00:00:00 2023-04-13 00:00:00 Smokeless tobacco non-user [facility] History of Social function 2023-04-13 00:00:00 2023-04-13 00:00:00 [facility] Sex Ass[birth year] At 1955 00:00:00 1955 00:00:00 [facility] Smoking Status Start Date Stop Date Source Never smoked tobacco [facility] acute hospital Medications Ordered Medication Name Filled Medication Name Start Date Stop Date Current Medication? Ordering Clinician Indication Dosage Frequency Signature (SIG) Comments Components Source sulfur hexafluorid e microsphr (LUMASON) injection 5 mL 05-24 23:00: 00 05-24 22:54 :00 No [id number] 5mL 5 mL, Intravenou s, ONCE, 1 dose, On Tue05/24/23 at 1700, Routine
road crew member approving Restricted medication : SEJAL RODRÍGUEZ [facility] acute hospital glimepiride 4 mg tablet 2022-04 15:17: 12 Yes 1 tablet with breakfast or the first main meal of the day Orally Once a day for 90 days [facility] acute hospital XYOSTED 75 mg/0.5 mL AtIn 2022-04 00:00: 00 Yes INJECT 1 PEN (75 MG) BELOW THE SKIN ONCE WEEKLY IN THE ABDOMEN. ROTATING SITES. [facility] acute hospital FEROSUL 325 mg (65 mg iron) tablet 2022-04 00:00: 00 Yes 325mg Take 1 tablet by mouth 2 (two) times daily. [facility] acute hospital pioglitazon e 15 mg tablet 2022-04 00:00: 00 Yes 15mg Take 1 tablet by mouth daily. [facility] acute hospital atorvastati n 40 mg tablet 2022-04 00:00: 00 Yes 40mg Take 1 tablet by mouth daily. [facility] acute hospital Vital Signs Vital Name Observation Time Observation Value Comments S janis Systolic blood pressure 2023-04-13 21:17:00 122 mm[Hg] [facility] Diastolic blood pressure 2023-04-13 21:17:00 75 mm[Hg] [facility] Heart rate 2023-04-13 21:17:00 108 /min [facility] Body temperature 2023-04-13 21:04:00 35.56 Megan [facility] Body height 2023-04-13 21:04:00 177.8 cm [facility] Body weight 2023-04-13 21:04:00 92.625 kg [facility] BMI 2023-04-13 21:04:00 29.30 kg/m2 [facility] Oxygen saturation in Arterial blood by Pulse oximetry 2023-04-13 21:04:00 98 /min [facility] Procedures Procedure Date / Time Performed Performing Clinician Source TRANSTHORACIC ECHO (TTE) COMPLETE W/ CONTRAST 2023-05-24 22:50:50 Latoya Partida [facility] HB ECG ROUTINE & RHYTHM STRIP 2023-04-13 21:21[facility]10 [facility] Start Date/Time End Date/Time Encounter Type Admission Type Attending Clinicians Care Facility Care Department Encounter ID Source 2023-07-12 00:00:00 2023-07-12 00:00:00 Telephone Latoya Partida [facility] 1.2.840.114 350.1.13.10 4.2.7.2.686 [id number] General acute hospital 2023-05-26 00:00:00 2023-05-26 00:00:00 Telephone Latoya Partida [facility] 1.2.840.114 350.1.13.10 4.2.7.2.686 [id number] General acute hospital 2023-05-24 15:38:54 2023-05-24 23:59:00 [id number] 2023-05-24 15:38:54 2023-05-24 23:59:00 [facility] 1.2.840.114 350.1.13.10 4.2.7.2.686 [id number] General acute hospital 2023-04-13 15:20:00 2023-04-13 15:36:16 [id number] 2023-04-13 15:20:00 2023-04-13 15:36:16 [facility] 1.2.840.114 350.1.13.10 4.2.7.2.686 [id number] General acute hospital Results Test Description Test Time Test Comments Results Result Co mments Source [facility] Notes Date/Time Note Provider Source 2023-07-14 15:01:49 8984-33-14Z30:01:49F ormatting of this note might be different from the original.Faxed clearance to fax provided. Pending confirmation. 88521-9Ulwazegia encounter UjsqCR5262-37-14C56:15:07Teleph one encounter NoteTXT1.2.840.822334.1.13.104. 2.7.2.285155|[id number] [facility] jgdw13997-9AojiPRQCPIDSNZQHqedl tted C-CDA narrative [id number] GUZ[address] AsdvGrlyqhmitJgvqzsreeMTBE25371 78932DCKPFDAQTFTQFXMPYANQIC5333 -03-28T15:15:071.2.840.386045.1 .72.3.15|1.2.840.420631.1.13.10 4.2.7.2.727879_[id number] Alyson Frausto MA [facility] 2023-07-12 16:14:30 0939-70-18S78:14:30F ormatting of this note might be different from the original.Images from the original note were not included. 43821-5Ndskwmkia encounter EqktRR6138-67-11W70:14:35Teleph one encounter NoteTXT1.2.840.849307.1.13.104. 2.7.2.853330|[id number] ble for patient robs62764-8BlwiNFMAGRAUELHWmzqu ed C-CDA narrative [address] 80279KVKCAYOYEWBBONCZGHDFKL4049 -03-26T16:14:351.2.840.081305.1 .72.3.15|1.2.840.994123.1.13.10 4.2.7.2.727879_[id number] [facility] 2023-07-12 15:29:05 4728-21-66U10:29:05F ormatting of this note might be different from the original.Will route to for chart review. 23386-9Gzvoccizn encounter LzjaRB7303-42-29I49:29:24Teleph one encounter NoteTXT1.2.840.908112.1.13.104. 2.7.2.753431|[id number] ble for patient tpvx98809-2RiimSYELVQTFZSORbwod tted C-CDA narrative text[address]TXTX[address] 62856KGNZBMINZWAITVQIPFOOZK0751 -03-26T15:29:241.2.840.674221.1 .72.3.15|1.2.840.154895.1.13.10 4.2.7.2.727879_[id number] [facility] 2023-07-12 14:19:15 0350-67-03S33:19:15F ormatting of this note might be different from the original.Micah Mina is a 68 year old male Azeb w/Dr. Herrera's office calling for cardiac clearance for a Total Knee Replacement. Please fax [phone] signed by Susie Chacon at 07/12/2023 2:20 PM NJN61436-6Tljfszohn encounter KcqdIX3786-85-33Y53:20:35Teleph one encounter NoteTXT1.2.840.239205.1.13.104. 2.7.2.336187|[id number] ble for patient ztdp80631-8FjhnEZUSPYKXLHHAtxwe tted C-CDA narrative [id number] [address] CalyUoolvevwgGugppdxtjMBWG03536 94464DHVAGPZMMEEOAGKGVFEUCQ5892 -03-26T14:20:351.2.840.519067.1 .72.3.15|1.2.840.839529.1.13.10 4.2.7.2.727879_[id number] Ssuie Chacon [facility] 2023-05-26 10:44:13 3141-43-81N12:44:13F ormatting of this note might be different from the original.DESHAWN note and TTE report faxed to PCP confirmation receivedECHO--normal EF. Incidental finding of PFO. Mild HTN related changes. No concerns.Fax OV note and ECHO report to PCP for preop. 11849-1Ddpbedsge encounter ZcjzGF0785-10-62B90:59:06Teleph one encounter NoteTXT1.2.840.860195.1.13.104. 2.7.2.549063|[id number] [facility] patient toxk16154-9MqlmLCKKTMGUQPDFzgkt tted C-CDA narrative [id number] A Roller RN[address] QyuwNiykrmwrbMghzqpnkwBQDX03243 99993FHSFNORTJGLUJWTMMFGWOS7869 -02-08T14:59:061.2.840.905654.1 .72.3.15|1.2.840.652977.1.13.10 4.2.7.2.727879_[id number] Sharon Randhawa RN [facility]"
--- NOTE | 2023-09-21 13:49 | RAD REPORT ---
EXAM DESCRIPTION: RAD - Knee Right 2 View - 09/21/2023 11:17 am CLINICAL HISTORY: Post Op COMPARISON: Knee Right 3 View dated 08/27/2022 TECHNIQUE: Right knee, 3 views. FINDINGS: Postoperative changes of total knee arthroplasty with adjacent soft tissue gas and skin st aples anteriorly. Hardware in satisfactory alignment. No fracture, dislocation or periosteal reaction .No joint effusion seen. No joint space narrowing. No soft tissue abnormality. IMPRESSION: Expected postoperative appearance of left total knee arthroplasty.
[2023-09-21 14:24] VITALS: BMI 34.3
[2023-09-21] MEDS: CEFAZOLIN SODIUM 2 GM in NA CHLORIDE 0.9% 100 ML IVPB SCH (16:53)
[2023-09-21] MEDS: METFORMIN HCL 500 MG TAB PO SCH (16:53)
[2023-09-21] MEDS ORDERED: HOME MED 1 EA UNK (Metformin Hcl [Metformin Hcl] 1,000 MG Tablet) PO SCH (21:00)
[2023-09-21] MEDS: GABAPENTIN 300 MG CAP PO SCH (21:02)
[2023-09-21] MEDS: INSULIN REGULAR (HUMAN) 100 UNIT/ML ONE (21:54)
[2023-09-21] MEDS: INSULIN REGULAR (HUMAN) 100 UNIT/ML SQ SCH (22:57)
[2023-09-22] MEDS: ENOXAPARIN 30 MG/0.3 ML SQ SCH (05:44)
[2023-09-22] MEDS: HYDROCODONE/APAP 7.5/325 MG TAB PO PRN (05:45)
[2023-09-22 07:12] LABS: Hemoglobin 11.8 g/dL (13.6-17.9)
[2023-09-22] MEDS: ATORVASTATIN 40 MG TAB PO SCH (08:32)
[2023-09-22] MEDS: CELECOXIB 100 MG CAPSULE PO SCH (08:32)
[2023-09-22] MEDS: hydroCHLOROthiazide 12.5 MG CAP PO SCH (08:32)
[2023-09-22] MEDS: lisinopriL 20 MG TAB PO SCH (08:32)
[2023-09-22] MEDS: PIOGLITAZONE 15 MG TAB PO SCH (08:32)
[2023-09-22] MEDS ORDERED: HOME MED 1 EA UNK (Lisinopril/Hydrochlorothiazide [Lisinopril-Hctz 20-12.5 Mg Tab] Tablet) PO SCH (09:00)
[2023-09-22 09:32] VITALS: O2SAT 98
--- NOTE | 2023-09-22 11:40 | P.OP ---
Preoperative diagnosis: Right knee osteoarthritis Postoperative diagnosis: Same Primary procedure: right total knee arthroplasty Anesthesia: General Estimated blood loss: 40 cc Specimen: Right knee bone remnants Findings: see dictation Operative Technique: Indication For Procedure: Kai is a 68 year-old male presenting to my clinic with signs, symptoms and x-ray findings consistent with severe right knee osteoarthritis. I discussed with the patient at length risks and benefits associated with operative and nonoperative treatment. He had failed conservative treatment measures and had significant difficulties with ADLs secondary to his pain. We discussed operative treatment and elected to proceed with right total knee arthroplasty. He expressed understanding and elected to proceed with operative treatment. Description Of Procedure: After informed consent was obtained, the patient was identified in the preoperative holding area. The right lower extremity was marked. The patient was then taken to the PACU where he underwent a right lower extremity adductor canal block performed by Anesthesia. He was then taken to the operating room, transferred to the operating table in supine fashion, and placed under general anesthesia. The right lower extremity was then prepped and draped in usual sterile fashion. A time-out was initiated. The correct patient and procedure were confirmed and identified. The patient did receive his preoperative prophylactic antibiotics. The right lower extremity was then exsanguinated and tourniquet was inflated to 300 mmHg. Approximately 15 cm longitudinal incision was made centered over the anterior aspect of the right knee. Dissection was then taken to the extensor mechanism and a medial parapatellar arthrotomy was performed. The patella was everted and dislocated laterally and the knee was flexed in the fat pad. Medial and lateral meniscus and ACL were all excised exposing the distal femur. Excess hypertrophic s ynovium was also excised within the suprapatellar pouch. The patient had an MRI of his right knee preoperatively for surgical planning and creation of cutting blocks. The cutting block was then placed over the distal femur and pins were then placed. The distal femoral cutting block was then placed over the pins. An obed wing was then used to ensure proper depth cut and the distal femur was then cut. The chamfer cutting guide was then placed over the distal end of the femur. Anterior, posterior cuts as well as anterior and posterior chamfer cuts were then made again confirming proper depth of the cut using an Obed wing. Excess bone remnants were then sent to pathology for further evaluation. Next, attention was taken to the proximal tibia. A tibial jig and tibial cutting block was then placed on proximal aspect of the right tibia and locked into position. Pins were then placed and alignment guide was then used to confirm proper alignment of the cut and then coronal and sagittal planes. Once this was confirmed, the cutting jig was placed over the pins and the proximal tibia was cut. Sizing trays were then selected and size 12 mm spacer was used and there was good overall balance in flexion and extension. Next, the trial implants were then placed using the size 8 standard CR femur and a size F tibia and an 12 mm CR poly. There was overall good range of motion and good stability. The trial implants were then removed. The wound was then irrigated thoroughly with normal saline and the knee was then injected with 20 cc of 0.5% Marcaine both in the posterior capsule and medial and lateral gutters as well as quadriceps tendon and periosteum. The tibia was then punched. The femur was drilled. The cement was then prepared on the back table. Cement was then placed first on the tibial surface followed by size f tibia. Excess cement was removed with [place] elevators. Size 6 standard CR femur was then placed on the distal femur after cement was placed on the distal femur. Excess cement was then removed and a size 10 mm CR trial poly was then placed. The knee was held in extension as the cement hardened. Undersurface of the patella was prepared debriding osteophytes using rongeurs as well as osteophytes.. Cement was placed on the undersurface of the patella after it was cut and a size 32 patella was placed. Once the cement was hardened, the knee was ranged, there was good overall stability both in flexion, extension and as well as stability with varus and valgus stresses. Trial poly was then removed and a size 12 mm CR poly was then placed and locked into position. The knee was then ranged again. There was good overall range of motion both for flexion and extension with good stability. The wound was then irrigated again thoroughly with normal saline using pulse lavage. Tourniquet was let down. Hemostasis was achieved using Bovie electrocautery. Extensor mechanism was then approximated using a #1 Vicryl both in interrupted and running fashion. The fascia was then approximated using 0 Vicryl. Subcutaneous tissue was approximated with a 2-0 Vicryl. Skin was approximated using julianne. Sterile dressings were applied. The patient was awakened and transferred back in stable condition Complications: None Implants: Biomet Casandra 8 CR femur, F tibia, 12 CR poly, 32 patella Fluids & blood products: Per anesthesia record; tourniquet time 86 minutes at 300 mmHg Transferred to: Recovery Room Condition: Good
[2023-09-22 12:47] VITALS: BP 137/74; TEMP 98.2
[2023-09-28] MEDS ORDERED: SEMAGLUTIDE 1 MG/0.75 ML SQ SCH (09:00)
[2023-09-28] MEDS ORDERED: TESTOSTERONE ENANTHATE SQ SCH (09:00)
[2023-09-28] MEDS ORDERED: AUTO INJCT SQ SCH (09:00)
== END 2023-09-22 15:56 | disposition home or self-care (01) ==
LOC: OR 05:54 → 2ND 10:45
PROVIDERS: ADMIT Orthopaedic Surgery Sports Medicine; ATTEND Orthopaedic Surgery Sports Medicine
PROC: 0SRC069 Replacement of Right Knee Joint with Oxidized Zirconium on Polyethylene Synthetic Substitute, Cemented, Open Approach (ICD-10-PCS; principal; 2023-09-22)
DX: M17.11 Unilateral primary osteoarthritis, right knee (principal)
CPT/HCPCS: 93005; 85025; 80048; 36415 ×3; 85610; 82947 ×7; 88305; 88311; 85730; 85018 ×2; 85014 ×2; 71046; 73560; 97110; 97116 ×2; 97139; 97161; 97530 ×2; 94010; 27447; C1776 ×2; J3475; J2704; J2001 ×3; J1650 ×2; J2250; J3010; J1100 ×2; J0171; J2405; G0378 ×4; J7030 ×2; J0690; G0379